=== PATIENT | male | born 1960 | race Caucasian/White ===

== ENCOUNTER 2016-10-31 19:26 | Emergency (ER) | payer MEDICARE ==
[2016-10-31 19:39] VITALS: BP 136/89
--- NOTE | 2016-10-31 22:58 | RAD ---
INDICATION: Right elbow pain possible bone spur. TECHNIQUE: 4 views of the right elbow were obtained. FINDINGS: The bones are in normal alignment. No joint effusion or fracture is seen. There is a small bony exostosis arising from the lateral epicondyle. There is mild osteoarthritic change. IMPRESSION: 1. SMALL BONY SPUR ARISING FROM THE LATERAL EPICONDYLE. 2. MILD OSTEOARTHRITIC CHANGE.
--- NOTE | 2016-10-31 23:56 | ED ---
Upper Extremity Pain - HPI Summary HPI Summary: 56 male presents with complaints of right elbow and forearm pain that began today 10/31/16. Patient states he noticed a skin rash and bump on his posterior right elbow in the shower yesterday 10/30/16. States the skin rash is white, non- itchy without drainage. Denies swelling, redness, recent injury or trauma, left arm pain and bruising. Patient has never had this pain before. Diffuse forearm pain that starts at elbow goes down to shoulder upon movement, especially when twisting forearm. Patient appears angry consistently asking who does the house keeping around here and also states that the nurse told him it was dry skin causing his pain and that it is ridiculous. Denies shoveling due to be a cardiac patient. States he took Ibuprofen just [employer] which did give him some relief however he does not like taking this medication it raises his blood pressure. Denies loss of ROM and numbness/tingling. Denies fever/chills. - History of Current Complaint Chief Complaint: EDExtremityUpper Stated Complaint: RIGHT ARM PAIN/LUMP Time Seen by Provider: 10/31/16 21:25 Hx Obtained From: Patient Onset/Duration: Started Days Ago Timing: Intermittent - with movement Severity Initially: Mild Severity Currently: Mild Pain Location: Elbow, Forearm Character: Aching Aggravating Factor(s): Movement Alleviating Factor(s): Rest, OTC Meds Associated Signs & Symptoms: Positive: Negative Related History: Dominant Hand Right - Allergies/Home Medications Allergies/Adverse Reactions: Allergies Allergy/AdvReac Type Severity Reaction Status Date / Time No Known Allergies Allergy Verified 04/06/15 18:41 PMH/Surg Hx/FS Hx/Imm Hx Endocrine/Hematology History: Reports: Hx Diabetes - ON MEDS Denies: Hx Anticoagulant Therapy, Hx Blood Disorders, Hx Blood Transfusions, Hx Bone Marrow Disease, Hx Systemic Lupus Erythematosus, Hx Sickle Cell Disease , Hx Thyroid Disease, Hx Anemia, Hx Unexplained Bleeding, Other Endocrine/ Hematological Disorders Cardiovascular History: Reports: Hx Angioplasty, Hx Auto Implanted Cardiovert Defib, Hx Coronary Artery Disease, Hx Hypercholesterolemia, Hx Hypertension, Hx Pacemaker/ICD Denies: Hx Aneurysm, Hx Angina, Hx Cardiac Arrest, Hx Cardiomegaly, Hx Congestive Heart Failure, Hx Embolism, Hx Hypotension, Hx Peripheral Vascular Disease, Hx Rheumatic Fever, Hx Syncope, Hx Valvular Heart Disease, Other Cardiovascular Problems/Disorders Respiratory History: Reports: Other Respiratory Problems/Disorders - HX PNEUMONA 10 YEARS AGO GI History: Reports: Hx Gastroesophageal Reflux Disease Denies: Other GI Disorders Sensory History: Reports: Hx Contacts or Glasses Opthamlomology History: Reports: Hx Contacts or Glasses Neurological History: Reports: Hx Nerve Disease - 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 GALLBLADDER, 2008, [facility]. CARDIAC STENTS, 2001, [facility] Hx Anesthesia Reactions: No Infectious Disease History: No Infectious Disease History: Denies: Hx Clostridium Difficile, Hx Hepatitis, Hx Human Immunodeficiency Virus (HIV), Hx of Known/Suspected MRSA, Hx Shingles, Hx Tuberculosis, Hx Known/ Suspected VRE, Hx Known/Suspected VRSA, History Other Infectious Disease, Traveled Outside the in Last 30 Days - Family History Known Family History: Positive: Cardiac Disease - Social History Alcohol Use: Rare Substance Use Type: Reports: None Smoking Status (MU): Never Smoked Tobacco Review of Systems Constitutional: Negative Eyes: Negative ENT: Negative Cardiovascular: Negative Respiratory: Negative Gastrointestinal: Negative Genitourinary: Negative Positive: Arthralgia, Myalgia Positive: Rash Neurological: Negative Psychological: Normal All Other Systems Reviewed And Are Negative: Yes Physical Exam Triage Information Reviewed: Yes Vital Signs On Initial Exam: Initial Vitals Temp Pulse Resp BP Pulse Ox 97.7 F 84 20 136/89 87 10/31/16 19:32 10/31/16 19:32 10/31/16 19:32 10/31/16 19:32 10/31/16 19:32 Vital Signs Reviewed: Yes Appearance: Positive: Well-Appearing, No Pain Distress, Well-Nourished Skin: Positive: Warm, Skin Color Reflects Adequate Perfusion - < 2 second cap refill, Dry, Other - white lichenified patches on bilateral posterior elbows, non pruritic no drainage. Negative: Weeping Skin/Lesions, Erythema @ Head/Face: Positive: Normal Head/Face Inspection Eyes: Positive: Normal ENT: Positive: Normal ENT inspection, Hearing grossly normal Neck: Positive: Supple, Nontender, No Lymphadenopathy Respiratory/Lung Sounds: Positive: Clear to Auscultation, Breath Sounds Present Cardiovascular: Positive: Normal, RRR, Pulses are Symmetrical in both Upper and Lower Extremities Abdomen Description: Positive: Nontender Bowel Sounds: Positive: Present Musculoskeletal: Positive: Normal, Strength/ROM Intact, Pain @ - right forearm with movement however does have Full ROM., Other - no signs of ecchymosis, erythema, edema, discharge or signs of infection or trauma. do feel a small bump on posterior right elbow around lateral epicondyle, that is more prominent when compared to left, appears to be a bone spur. confirmed by x-ray. Negative : Limited @, Interruption @, Edema Left, Edema Right Neurological: Positive: Normal, Sensory/Motor Intact, Alert, Oriented to Person Place, Time, CN Intact II-III, Reflexes Intact, NV Bundle Intact Distally, Normal Gait Psychiatric: Positive: Normal, Affect/Mood Appropriate Diagnostics - Vital Signs Vital Signs Temp Pulse Resp BP Pulse Ox 10/31/16 19:32 97.7 F 84 20 136/89 87 - Laboratory Lab Statement: Any lab studies that have been ordered have been reviewed, and results considered in the medical decision making process. - Radiology right elbow Xray Interpretation: Positive (See Comments) - 1. SMALL BONY SPUR ARISING FROM THE LATERAL EPICONDYLE. 2. MILD OSTEOARTHRITIC CHANGE. Radiology Interpretation Completed By: Radiologist Course/Dx - Course Course Of Treatment: x-ray obtained. denied pain medication at this time. while awaiting x-ray results went back to check on patient 2 times and he was no longer in the room. thought patient had left AMA. When I went back in the room to see another patient, patient was back. Patient was again very angry stating "I need to go get my brain checked, no wonder why people in the waiting room , this place is dirty, he'll never come back here again" mumbling under his breath that he would hurt.... also was mis understanding the statement of dry skin causing his pain when it was never said. I was apologetic. Patient also gave Dr Fox and nursing staff the same attitude. Patient was properly treated. Told to follow up with primary about bone spur and to try using eucerin on lichenification rash on elbows and a dermatology referral. rule out possible psoriasis. - Diagnoses Differential Diagnosis/HQI/PQRI: Positive: Arthritis, Bursitis, Contusion, Strain, Sprain, Other Provider Diagnoses: Bone spur, Lichenification - Physician Notifications Discussed Care Of Patient With: Dr Fox Discharge - Discharge Plan Condition: Guarded Disposition: HOME Referrals: Devin Pina DO [Primary Care Provider] - Brian Guzman MD [Medical Doctor] - Additional Instructions: Take OTC Tylenol to help with pain. Make an appointment with orthopedics or your primary care if this continues to bother you or worsen. Apply Eucerin to lichenified skin on both elbows.
--- NOTE | 2016-11-02 09:29 | ED ---
Dominguez Pierre Aidan, scribed for Conner Fox MD on 10/31/16 at 2208 . Progress - Progress Note Progress Note: Dr. Fox briefly evaluated the patient: he is complaining of right forearm pain. He is right-hand dominant. Pt presents with a bony prominence. Just distal to elbow, he is not tender to palpation (where he says he has pain). He should follow up with his PCP in 2-3 days. Suspected bone spurring. Course/Dx - Diagnoses Provider Diagnoses: Bone spur, Lichenification The documentation as recorded by the Dominguez knowles Aidan accurately reflects the service I personally performed and the decisions made by Dominique hutchison Jerry, MD.
== END 2016-10-31 23:33 | disposition home or self-care (01) ==
LOC: ED 19:26
DX: M77.9 Enthesopathy, unspecified (principal); L28.0 Lichen simplex chronicus; E11.9 Type 2 diabetes mellitus without complications; I25.10 Atherosclerotic heart disease of native coronary artery without angina pectoris; E78.00 Pure hypercholesterolemia, unspecified; I10 Essential (primary) hypertension; K21.9 Gastro-esophageal reflux disease without esophagitis; F41.9 Anxiety disorder, unspecified
CPT/HCPCS: 99282

== ENCOUNTER 2017-03-24 14:10 | Inpatient (IN) | payer MEDICARE ==
[2017-03-24] MEDS ORDERED: Furosemide IV* 10 MG/ML VIAL (40 MG) IV ONE ×2 (14:17→17:46)
--- NOTE | 2017-03-24 14:53 | RAD ---
Indication: Shortness of breath and 60 pound weight gain. Cardiac disease. Comparison: April 06, 2015 CT Technique: Upright AP 1423 hours Report: Cardiomegaly. Mild prominence of the interstitial markings. Normal variant accessory azygos fissure in the RIGHT upper lung zone. Negative for pleural effusion or pneumothorax. 2 RIGHT ventricular level pacemaker leads. LEFT chest wall pacemaker control device. IMPRESSION: Cardiomegaly with probable mild interstitial edema.
[2017-03-24 15:00] LABS: Hematocrit 47 % (42-52); Hemoglobin 14.9 g/dl (14.0-18.0); Mean Corpuscular HGB Conc 32 g/dl (31-36); Mean Corpuscular Hemoglobin 30 pg (27-31); Mean Corpuscular Volume 95 fL (80-94); Mean Platelet Volume 9 um3 (7.4-10.4); Red Blood Count 4.96 10^6/ul (4.0-5.4); Red Cell Distribution Width 18 % (10.5-15); White Blood Count 7.6 10^3/ul (3.5-10.8)
[2017-03-24 15:07] LABS: Albumin 3.6 g/dL (3.2-5.2); BUN/Creatinine Ratio 32.2 (8-20); C Reactive Protein 28.37 mg/L (< 5.00); Calcium 9.3 mg/dL (8.6-10.3); EGFR African American 53.3 (>60); EGFR Non-African American 41.5 (>60); Globulin 3.8 g/dL (2-4); Potassium 4.2 mmol/L (3.5-5.0); Total Bilirubin 0.7 mg/dL (0.2-1.0); Total Protein 7.4 g/dL (6.4-8.9)
[2017-03-24 15:13] LABS: Troponin I 0.04 ng/mL (<0.04)
[2017-03-24 15:43] LABS: TSH (Thyroid Stimulating Horm) 2.93 mcIU/mL (0.34-5.60)
[2017-03-24 17:31] LABS: Urine Bacteria Absent (Absent); Urine Bilirubin Negative (Negative); Urine Glucose 1+(50 mg/dL) (Negative); Urine Nitrite Negative (Negative)
--- NOTE | 2017-03-24 17:34 | ED ---
Yony Pierre Benjamin, scribed for Samuel Mathew MD on 03/24/17 at 1436 . Shortness of Breath - HPI Summary HPI Summary: 56yo male BIBA c/o SOB and weight gain of 60lb in the last 2 months. Pt saw his PCP today who referred him to the ED. Pt denies fever, chills or any CP. Hx of Mix3, cardiac stentx3, pace maker, IDDM, and JVD. - History of Current Complaint Chief Complaint: EDShortnessOfBreath Time Seen by Provider: 03/24/17 14:16 Hx Obtained From: Patient Onset/Duration: Sudden Onset, Lasting Hours, Still Present Current Severity: Moderate Dyspnea At: Rest Aggrevating Factors: Nothing Associated Signs & Symptoms: Negative - Allergy/Home Medications Allergies/Adverse Reactions: Allergies Allergy/AdvReac Type Severity Reaction Status Date / Time No Known Allergies Allergy Verified 04/06/15 18:41 Home Medications: Home Medications Atorvastatin* [Lipitor*] 80 mg PO DAILY 03/24/17 [History Confirmed 03/24/17] Furosemide TAB* [Lasix TAB*] 40 mg PO EVERY OTHER DAY 03/24/17 [History Confirmed 03/24/17] Furosemide TAB* [Lasix TAB*] 80 mg PO EVERY OTHER DAY 03/24/17 [History Confirmed 03/24/17] Ibuprofen [Ibuprofen 200 MG] 200 mg PO Q6HR PRN 03/24/17 [History Confirmed 04/02] Liraglutide (NF) [Victoza (NF)] 1.8 mg SUBCUT DAILY 03/24/17 [History Confirmed 03/24/17] Nitroglycerin TAB 0.4 MG* 0.4 mg SL Q5M PRN 03/24/17 [History Confirmed 03/24/17 ] diPHENhydraMINE PO* [Benadryl PO 25 MG TAB*] 25 mg PO Q6H PRN 03/24/17 [History Confirmed 03/24/17] metFORMIN* [Glucophage 1000 MG TAB *] 1,000 mg PO BID WITH MEALS 03/24/17 [ History Confirmed 03/24/17] PMH/Surg Hx/FS Hx/Imm Hx Endocrine/Hematology History: Reports: Hx Diabetes - ON MEDS Denies: Hx Anticoagulant Therapy, Hx Blood Disorders, Hx Blood Transfusions, Hx Bone Marrow Disease, Hx Systemic Lupus Erythematosus, Hx Sickle Cell Disease , Hx Thyroid Disease, Hx Anemia, Hx Unexplained Bleeding, Other Endocrine/ Hematological Disorders Cardiovascular History: Reports: Hx Angioplasty, Hx Auto Implanted Cardiovert Defib, Hx Coronary Artery Disease, Hx Hypercholesterolemia, Hx Hypertension, Hx Pacemaker/ICD Denies: Hx Aneurysm, Hx Angina, Hx Cardiac Arrest, Hx Cardiomegaly, Hx Congestive Heart Failure, Hx Embolism, Hx Hypotension, Hx Peripheral Vascular Disease, Hx Rheumatic Fever, Hx Syncope, Hx Valvular Heart Disease, Other Cardiovascular Problems/Disorders Respiratory History: Reports: Other Respiratory Problems/Disorders - HX PNEUMONA 10 YEARS AGO GI History: Reports: Hx Gastroesophageal Reflux Disease Denies: Other GI Disorders Sensory History: Reports: Hx Contacts or Glasses Opthamlomology History: Reports: Hx Contacts or Glasses Neurological History: Reports: Hx Nerve Disease - 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 GALLBLADDER, 2008, [facility]. CARDIAC STENTS, 2001, [facility] Hx Anesthesia Reactions: No Infectious Disease History: No Infectious Disease History: Denies: Hx Clostridium Difficile, Hx Hepatitis, Hx Human Immunodeficiency Virus (HIV), Hx of Known/Suspected MRSA, Hx Shingles, Hx Tuberculosis, Hx Known/ Suspected VRE, Hx Known/Suspected VRSA, History Other Infectious Disease, Traveled Outside the in Last 30 Days - Family History Known Family History: Positive: Cardiac Disease - Social History Alcohol Use: Rare Substance Use Type: Reports: None Smoking Status (MU): Never Smoked Tobacco Review of Systems Positive: Other - significant recent weight gain Eyes: Negative ENT: Negative Cardiovascular: Negative Positive: Shortness Of Breath Gastrointestinal: Negative Genitourinary: Negative Musculoskeletal: Negative Skin: Negative Neurological: Negative Psychological: Normal All Other Systems Reviewed And Are Negative: Yes Physical Exam Triage Information Reviewed: Yes Vital Signs On Initial Exam: Initial Vitals Temp Pulse Resp BP Pulse Ox 97.4 F 77 21 127/68 91 03/24/17 14:18 03/24/17 14:18 03/24/17 14:18 03/24/17 14:18 03/24/17 14:18 Vital Signs Reviewed: Yes Appearance: Positive: Well-Appearing, No Pain Distress, Well-Nourished Skin: Positive: Warm, Skin Color Reflects Adequate Perfusion, Dry Head/Face: Positive: Normal Head/Face Inspection Eyes: Positive: Normal ENT: Positive: Normal ENT inspection Neck: Positive: Supple, Nontender Respiratory/Lung Sounds: Positive: Breath Sounds Present, Rales, Other - moderate dyspnea Cardiovascular: Positive: RRR Abdomen Description: Positive: Nontender, Distended Bowel Sounds: Positive: Present Musculoskeletal: Positive: Strength/ROM Intact, Edema Left - extensive bilateral pedal edema, Edema Right - extensive bilateral pedal edema Neurological: Positive: Sensory/Motor Intact, Alert, Oriented to Person Place, Time, CN Intact II-III. Negative: Focal Deficit @ - no neurological deficits Psychiatric: Positive: Affect/Mood Appropriate Diagnostics - Vital Signs Vital Signs Temp Pulse Resp BP Pulse Ox 03/24/17 14:18 97.4 F 77 21 127/68 91 - Laboratory Lab Results: Lab Results 03/24/17 03/24/17 03/24/17 Range/Units 14:44 14:44 14:44 WBC 7.6 (3.5-10.8) 10^3/ul RBC 4.96 (4.0-5.4) 10^6/ul Hgb 14.9 (14.0-18.0) g/dl Hct 47 (42-52) % MCV 95 H (80-94) fL MCH 30 (27-31) pg MCHC 32 (31-36) g/dl RDW 18 H (10.5-15) % Plt Count 306 (150-450) 10^3/ul MPV 9 (7.4-10.4) um3 Neut % (Auto) 73.8 (38-83) % Lymph % (Auto) 13.1 L (25-47) % Weber % (Auto) 11.3 H (1-9) % Eos % (Auto) 0.5 (0-6) % Baso % (Auto) 1.3 (0-2) % Absolute Neuts (auto) 5.6 (1.5-7.7) 10^3/ul Absolute Lymphs (auto) 1.0 (1.0-4.8) 10^3/ul Absolute Monos (auto) 0.9 H (0-0.8) 10^3/ul Absolute Eos (auto) 0 (0-0.6) 10^3/ul Absolute Basos (auto) 0.1 (0-0.2) 10^3/ul Absolute Nucleated RBC 0 10^3/ul Nucleated RBC % 0.1 INR (Anticoag Therapy) 1.07 (0.89-1.11) APTT 31.9 (26.0-36.3) seconds Sodium 141 (133-145) mmol/L Potassium 4.2 (3.5-5.0) mmol/L Chloride 105 (101-111) mmol/L Carbon Dioxide 29 (22-32) mmol/L Anion Gap 7 (2-11) mmol/L BUN 55 H (6-24) mg/dL Creatinine 1.71 H (0.67-1.17) mg/dL Est GFR ( Amer) 53.3 (>60) Est GFR (Non-Af Amer) 41.5 (>60) BUN/Creatinine Ratio 32.2 H (8-20) Glucose 159 H (70-100) mg/dL Lactic Acid (0.5-2.0) mmol/L Calcium 9.3 (8.6-10.3) mg/dL Magnesium 2.0 (1.9-2.7) mg/dL Total Bilirubin 0.70 (0.2-1.0) mg/dL AST 12 L (13-39) U/L ALT 9 (7-52) U/L Alkaline Phosphatase 144 H (34-104) U/L Total Creatine Kinase 36 (10-223) U/L CK-MB (CK-2) 2.3 (0.6-6.3) ng/mL Troponin I 0.04 H* (<0.04) ng/mL C-Reactive Protein 28.37 H (< 5.00) mg/L B-Natriuretic Peptide ( - 100) pg/mL Total Protein 7.4 (6.4-8.9) g/dL Albumin 3.6 (3.2-5.2) g/dL Globulin 3.8 (2-4) g/dL Albumin/Globulin Ratio 0.9 L (1-3) Lipase 24 (11.0-82.0) U/L TSH 2.93 (0.34-5.60) mcIU/mL Urine Color Urine Appearance Urine pH (5-9) Ur Specific [place] (1.010-1.030) Urine Protein (Negative) Urine Ketones (Negative) Urine Blood (Negative) Urine Nitrate (Negative) Urine Bilirubin (Negative) Urine Urobilinogen (Negative) Ur Leukocyte Esterase (Negative) Urine WBC (Auto) (Absent) Urine RBC (Auto) (Absent) Ur Squamous Epith Cells (Absent) Urine Bacteria (Absent) Hyaline Casts (Absent) WBC Casts (Absent) Urine Glucose (Negative) 03/24/17 03/24/17 03/24/17 Range/Units 14:44 14:44 17:12 WBC (3.5-10.8) 10^3/ul RBC (4.0-5.4) 10^6/ul Hgb (14.0-18.0) g/dl Hct (42-52) % MCV (80-94) fL MCH (27-31) pg MCHC (31-36) g/dl RDW (10.5-15) % Plt Count (150-450) 10^3/ul MPV (7.4-10.4) um3 Neut % (Auto) (38-83) % Lymph % (Auto) (25-47) % Weber % (Auto) (1-9) % Eos % (Auto) (0-6) % Baso % (Auto) (0-2) % Absolute Neuts (auto) (1.5-7.7) 10^3/ul Absolute Lymphs (auto) (1.0-4.8) 10^3/ul Absolute Monos (auto) (0-0.8) 10^3/ul Absolute Eos (auto) (0-0.6) 10^3/ul Absolute Basos (auto) (0-0.2) 10^3/ul Absolute Nucleated RBC 10^3/ul Nucleated RBC % INR (Anticoag Therapy) (0.89-1.11) APTT (26.0-36.3) seconds Sodium (133-145) mmol/L Potassium (3.5-5.0) mmol/L Chloride (101-111) mmol/L Carbon Dioxide (22-32) mmol/L Anion Gap (2-11) mmol/L BUN (6-24) mg/dL Creatinine (0.67-1.17) mg/dL Est GFR ( Amer) (>60) Est GFR (Non-Af Amer) (>60) BUN/Creatinine Ratio (8-20) Glucose (70-100) mg/dL Lactic Acid 1.2 (0.5-2.0) mmol/L Calcium (8.6-10.3) mg/dL Magnesium (1.9-2.7) mg/dL Total Bilirubin (0.2-1.0) mg/dL AST (13-39) U/L ALT (7-52) U/L Alkaline Phosphatase (34-104) U/L Total Creatine Kinase (10-223) U/L CK-MB (CK-2) (0.6-6.3) ng/mL Troponin I (<0.04) ng/mL C-Reactive Protein (< 5.00) mg/L B-Natriuretic Peptide 2353 H ( - 100) pg/mL Total Protein (6.4-8.9) g/dL Albumin (3.2-5.2) g/dL Globulin (2-4) g/dL Albumin/Globulin Ratio (1-3) Lipase (11.0-82.0) U/L TSH (0.34-5.60) mcIU/mL Urine Color Yellow Urine Appearance Clear Urine pH 5.0 (5-9) Ur Specific [place] 1.016 (1.010-1.030) Urine Protein 2+(100 mg/dl) H (Negative) Urine Ketones Negative (Negative) Urine Blood Negative (Negative) Urine Nitrate Negative (Negative) Urine Bilirubin Negative (Negative) Urine Urobilinogen Negative (Negative) Ur Leukocyte Esterase Negative (Negative) Urine WBC (Auto) Trace(0-5/hpf) (Absent) Urine RBC (Auto) Absent (Absent) Ur Squamous Epith Cells Present H (Absent) Urine Bacteria Absent (Absent) Hyaline Casts Present H (Absent) WBC Casts Present H (Absent) Urine Glucose 1+(50 mg/dl) H (Negative) Result Diagrams: 03/24/17 14:44 03/24/17 14:44 Lab Statement: Any lab studies that have been ordered have been reviewed, and results considered in the medical decision making process. - Radiology CXR Xray Interpretation: Positive (See Comments) - IMPRESSION: Cardiomegaly with probable mild interstitial edema. Radiology Interpretation Completed By: Radiologist - EKG 5820. Cardiac Rate: NL - 72bpm EKG Rhythm: Sinus Rhythm Ectopy: None EKG Interpretation: borderline T abnormalities in inferior and lateral leads. Course/Dx - Course Course Of Treatment: STABLE IN ED. ADMIT HOSPITALIST STABLE. - Diagnoses Provider Diagnoses: CHF (congestive heart failure), Hypoxia, Renal insufficiency Discharge - Discharge Plan Condition: Stable Disposition: ADMITTED TO [facility] Referrals: Devin Pina DO [Primary Care Provider] - The documentation as recorded by the Yony knowles Benjamin accurately reflects the service I personally performed and the decisions made by me, Samuel Mathew MD.
[2017-03-24] MEDS ORDERED: Dextrose 50% Syringe 50 ML* 25 GM/50 ML SYRINGE IV PUSH PRN (17:51)
[2017-03-24] MEDS ORDERED: Acetaminophen TAB* 325 MG PO PRN (17:52)
[2017-03-24] MEDS ORDERED: Ondansetron INJ* 2 MG/ML VIAL IV PRN (17:53)
[2017-03-24] MEDS ORDERED: Metolazone TAB* 5 MG PO ONE (18:08)
[2017-03-24] MEDS ORDERED: Furosemide IV* 10 MG/ML 10 ML VIAL (100 MG) IV ONE (18:38)
--- NOTE | 2017-03-24 22:34 | HP ---
CC: Dr. Devin Pina [facility] MEDICINE HISTORY AND PHYSICAL: DATE OF ADMISSION: 03/24/17 PRIMARY CARE PHYSICIAN: Dr. Devin Pina. ATTENDING PHYSICIAN: Dr. Diane Danielle * (dictation provided by Katarina Velásquez NP ). CHIEF COMPLAINT: Shortness of breath. HISTORY OF PRESENT ILLNESS: Mr. Freire is a 56-year-old male with past medical history of CHF with last known ejection fraction of 30% to 35% with 3 MIs, CABG and 2 stents as well as obstructive sleep apnea; ICD placement; type 2 diabetes, non-insulin dependent and morbid obesity, who presents to the hospital today with complaints of shortness of breath. He last saw his primary care physician 6 months ago. He went to follow up with Dr. Pina today for a routine visit and he was noted to have had gained 60 pounds in the past 6 months. He was also extraordinarily short of breath and was pale and dusky. The patient states that he has known that his health was deteriorating for few months. 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 He now uses a motorized wheelchair when he goes to the grocery store or shopping. He reports significant edema in his legs and his arms. He states his abdomen is swollen. He wears 2 to 3 L nasal cannula at home at all times. He also has obstructive sleep apnea and wears CPAP. He denies any chest pain. He has had no cough. He has had no nausea, vomiting, or abdominal pain. He has had no diarrhea. He has been tolerating oral intake well. In the emergency room, Mr. Freire was requiring 10 L of oxygen to maintain sat greater than 90%. His BUN and creatinine are elevated with evidence of an acute kidney injury at 55 and 1.71 respectively. His troponin is mildly elevated at 0.04. His BNP is quite high at 2353. His chest x-ray is read as mild pulmonary interstitial edema only, but is a very poor study. His EKG shows sinus rhythm with the heart rate in the 70s with no evidence of ischemia. PAST MEDICAL HISTORY: 1. Coronary artery disease with first NH at 31 with 2 subsequent MIs requiring CABG and stent placement. 2. Chronic systolic heart failure with ejection fraction 30% to 35%. 3. ICD placed, 2004. 4. Mitral regurgitation. 5. Myhrbkqw-ej-yqdyhy pulmonary hypertension. 6. Morbid obesity. 7. Hypertension. 8. Type 2 diabetes, non-insulin dependent. MEDICATIONS: 1. Furosemide 40 mg alternating with 80 mg every other day. 2. Ibuprofen 200 mg p.o. q.6 hours p.r.n. 3. Victoza 1.8 mg subcutaneously daily. 4. Lisinopril 20 mg p.o. daily. 5. Nitroglycerin tab 0.4 mg q.5 minutes p.r.n. 6. Diphenhydramine 25 mg p.o. q.6 hours p.r.n. 7. Metformin 1000 mg p.o. b.i.d. 8. Aspirin 81 mg p.o. daily. 9. Atenolol 50 mg p.o. daily. 10. Atorvastatin 80 mg p.o. daily. ALLERGIES: No known drug allergies. FAMILY HISTORY: The patient reports his father had CHF and in his 70s. His mother related to brain aneurysm and also had hypertension. SOCIAL HISTORY: The patient quit smoking cigarettes 8 years ago. He only drinks alcohol very occasionally. There is no report of drug use. He reports that his daughter, Herminia Freire, would be his healthcare proxy. REVIEW OF SYSTEMS: A 14-point review of systems was completed with Mr. Freire and all those not mentioned above were negative. PHYSICAL EXAMINATION GENERAL: Mr. Freire is sitting in the bed. He is in no acute distress and appears comfortable at rest. He is able to speak in complete sentences. VITAL SIGNS: Temperature 97.4, heart rate 70, respiratory rate 22, O2 saturation 93% on 10 L facemask, blood pressure 143/83. LUNGS: Sound very diminished bilaterally and auscultation is less than optimal due to his body habitus. HEART: S1, S2. No murmur, rub, or gallop is appreciated. ABDOMEN: Soft. It is distended. It is nontender. Bowel sounds are positive. EXTREMITIES: No cyanosis. Positive for 3+ pitting edema up to his thighs. He also has edema in his arms, most notably in his left arm. NEURO: He is alert, he is oriented x3. He moves all extremities equally. There is no facial asymmetry or focal weakness. Extraocular movements are intact. SKIN: Intact. His ears are dusky as well as his lips dusky and purple. DIAGNOSTIC STUDIES/LAB DATA: WBC 7.6, hemoglobin 14.9, hematocrit 47, platelet count 306. INR 1.07. Sodium 141, potassium 4.2, chloride 105, serum bicarbonate 29, BUN 55, creatinine 1.71, glucose 159, lactic acid 1.2. Troponin 0.04. CRP 28.37. BNP 2353. Urine shows no evidence of infection. Chest x-ray shows mild interstitial edema per the read from Dr. Sawyer. EKG shows sinus rhythm with heart rate in the 70s. ASSESSMENT AND PLAN: Mr. Freire is a 56-year-old male with past medical history of coronary artery disease with myocardial infarction x3 and coronary artery bypass graft as well as ejection fraction 30% to 35% with implantable cardioverter- defibrillator, who presents today to the hospital with shortness of breath and a 60- pound weight gain with significant peripheral edema. Our plans are for inpatient admission as expected length of stay would be greater than 2 days for the followin. Shortness of breath: Given the patient's history of congestive heart failure, his shortness of breath, and his significant peripheral edema, and weight gain, I suspect that his symptoms are all related to acute on chronic congestive heart failure exacerbation. Our plans will be to augment his diuresis with metolazone and an additional 80 mg of Lasix tonight. I have discussed the case with Dr. Alex and someone from Cardiology will be seeing the patient tomorrow. He is currently on 10 L of oxygen, but he is maintaining well at rest. Plan to admit to the intensive care unit in the event that additional oxygen supplementation is needed. The patient denies any dietary indiscretions and his daughter is at the bedside who helps with his care confirms that he has been making great efforts to follow a low- salt diet. Despite this, he continues to gain weight and be short of breath. I have ordered a transthoracic echo as I am concerned that his EF has worsened. 2. Hypertension: Plan to continue atenolol but hold his lisinopril with need for diuresis and his acute kidney injury. 3. Type 2 diabetes: Plan to hold Victoza and provide lispro sliding scale insulin with meals. He can also have Lantus as needed, but at this point, his glucose this afternoon is reasonably well controlled at 159. 4. DVT prophylaxis: With heparin subcu. 5. Code status: Full code. The patient would accept intubation if necessary. TIME SPENT: Approximately 60 minutes was spent on the admission of this patient , more than half time was spent with the patient at the bedside reviewing the events leading up to this hospitalization, performing the physical examination, and reviewing the plan of care. KATARINA VELÁSQUEZ NP [id number]/CPS #: [id number] BRIAN
[2017-03-24] MEDS: Heparin VIAL(*) 5000 UNITS/ML VIAL (FIVE THOUSAND) SUBCUT SCH (23:25)
[2017-03-24] MEDS: Morphine INJ* 4 MG/ML 1 ML SYRINGE IV PRN (23:34)
[2017-03-25] MEDS: Morphine INJ* 4 MG/ML 1 ML SYRINGE IV PRN ×2 (04:01→16:51)
[2017-03-25] MEDS: Heparin VIAL(*) 5000 UNITS/ML VIAL (FIVE THOUSAND) SUBCUT SCH (05:49)
[2017-03-25 05:59] LABS: Hematocrit 44 % (42-52); Hemoglobin 13.6 g/dl (14.0-18.0); Mean Corpuscular HGB Conc 31 g/dl (31-36); Mean Corpuscular Hemoglobin 30 pg (27-31); Mean Corpuscular Volume 96 fL (80-94); Mean Platelet Volume 9 um3 (7.4-10.4); Red Blood Count 4.59 10^6/ul (4.0-5.4); Red Cell Distribution Width 18 % (10.5-15)
[2017-03-25 06:01] LABS: Calcium 9.4 mg/dL (8.6-10.3); EGFR African American 50.6 (>60); EGFR Non-African American 39.3 (>60); Potassium 4.5 mmol/L (3.5-5.0)
[2017-03-25 06:02] LABS: Comments Flag Yes
[2017-03-25] MEDS ORDERED: Metolazone TAB* 5 MG PO ONE (08:25)
[2017-03-25] MEDS ORDERED: Furosemide IV* 10 MG/ML VIAL (40 MG) IV ONE (09:00)
[2017-03-25] MEDS ORDERED: Atorvastatin* 80 MG TAB PO SCH (09:00)
[2017-03-25] MEDS ORDERED: Aspirin Low Dose CHEW TAB* 81 MG PO SCH (09:00)
[2017-03-25] MEDS ORDERED: Atenolol TAB* 50 MG PO SCH (09:00)
[2017-03-25] MEDS: Insulin LISPRO* 1 UNITS UNIT SUBCUT SCH ×2 (09:24→13:17)
[2017-03-25] MEDS ORDERED: Heparin DRIP 25,000 UNITS(*) 25,000 UNITS/500 ML BAG IVPB SCH (10:00)
[2017-03-25] MEDS ORDERED: Heparin VIAL(*) 5000 UNITS/ML VIAL (FIVE THOUSAND) IV SCH (10:00)
--- NOTE | 2017-03-25 10:00 | ECHO ---
Patient: JUANITO TAYLOR [facility] Rec#: [id number] : 1960 Date: 03/25/2017 Age: 56y Height: 167.6 cm / 66.0 in Weight: 122.5 kg / 270.0 lbs Sex: M BSA: 2.27 Room#: ICU 3 Admit Date#: 03/24/2017 Type: Inpatient Referring: Katarina Velásquez NP Reading: Lindsey Krause MD Vessel Traffic Officer: Avelina Paulino RN RDCS CC: Devin Pina DO CC: Blane High MD Transthoracic Echocardiogram Indication: CHF BP: 106/59 HR: 63 Rhythm: NSR with PVCs Findings History: GA, PCI x 3, pacemaker, DM, obesity Technical Comments: The study quality is fair. The study is technically limited due to poor apical windows. The study is technically limited due to patient body habitus. The study is technically limited due to patient being on BIPAP during study. Completed 914. Left Ventricle: The left ventricular chamber size is moderately dilated. Septal wall hypertrophy is observed. There are multiple regional wall motion abnormalities. Posterior wall calcified and akinetic. Anterior and lateral nails move well. There is moderate to severely decreased left ventricular systolic function. The estimated ejection fraction is 30-35%. There is septal flattening of the interventricular septum consistent with right ventricular volume or pressure overload. Septum bowing into LV, LV "guajardo shapped" instead of "D shaped" Abnormal left ventricular diastolic filling is observed, consistent with impaired relaxation. Left Atrium: The left atrium is mildly dilated. Right Ventricle: The right ventricle is moderate to severely dilated. The right ventricular global systolic function is severely reduced. A pacemaker wire is visualized in the right ventricle. Right Atrium: The right atrium is moderate to severely dilated. A pacemaker wire is visualized in the right atrium. Aortic Valve: The aortic valve is trileaflet. The aortic valve leaflets are mildly thickened. There is no evidence of aortic regurgitation. There is no evidence of aortic stenosis. Mitral Valve: There is posterior mitral annular calcification. The mitral valve leaflets are mildly thickened. There is mild to moderate mitral regurgitation. There is no evidence of mitral stenosis. Tricuspid Valve: The tricuspid valve leaflets are normal. There is moderate to severe tricuspid regurgitation.medially directed jet. There is evidence of severe pulmonary hypertension. There is no tricuspid stenosis. Pulmonic Valve: The pulmonic valve appears normal. There is mild pulmonic regurgitation. There is no pulmonic stenosis. Pericardium: There is no significant pericardial effusion. A pericardial fat pad is visualized. A left pleural effusion is present. Aorta: There is no dilatation of the ascending aorta. The aortic arch is not well visualized. There is no dilation of the aortic root. Pulmonary Artery: The main pulmonary artery appears normal. Venous: The inferior vena cava is dilated. There is no change in the dimension of the inferior vena cava with respiration consistent with markedly increased right atrial pressure. Conclusions The study is technically limited due to patient being on BIPAP during study. Completed 914. The left ventricular chamber size is moderately dilated. Septal wall hypertrophy is observed. There are multiple regional wall motion abnormalities. Posterior wall calcified and akinetic. Anterior and lateral nails move well. There is septal flattening of the interventricular septum consistent with right ventricular volume or pressure overload. Septum bowing into LV, LV "guajardo shapped" instead of "D shaped" The estimated ejection fraction is 30-35%. Abnormal left ventricular diastolic filling is observed, consistent with impaired relaxation. The right ventricle is moderate to severely dilated. The right ventricular global systolic function is severely reduced. The right atrium is moderate to severely dilated. There is mild to moderate mitral regurgitation. There is moderate to severe tricuspid regurgitation.medially directed jet. There is evidence of severe pulmonary hypertension: 100 mmHg. Compared with prior echo report of 09/24/16, LV function is not significantly changed, RV function has worsened, previously moderate now virtually akinetic, pulmonary hypertension newly appreciated, previously estimated at 32 mHg. Measurements Name Value Normal Range RVIDd (AP) 2D 5.2 cm (0.9 - 2.6) RVDdMajor (2D) 5.4 cm (2.2 - 4.4) RAd ISD 4CH 6.4 cm (3.4 - 4.9) RA (A4C)W 4.5 cm (2.9 - 4.6) IVSd (2D) 1.7 cm (0.6 - 1) LVPWd (2D) 1 cm (0.6 - 1) LVIDd (2D) 6.6 cm (3.6 - 5.4) LVIDs (2D) 6.1 cm - LV FS (2D) 8 % (25 - 45) Aortic Annulus 2.7 cm (1.4 - 2.6) Ao root diameter (2D) 3.4 cm (2.1 - 3.5) Ascending Ao 3.1 cm (2.1 - 3.4) LA dimension (AP) 2D 5 cm (2.3 - 3.8) LAd ISD 4CH 5.4 cm (2.9 - 5.3) LA ISD 4CH W 4.4 cm (2.5 - 4.5) Name Value Normal Range LA ESV SP 4CH (A/L) 61 ml - LA ESV SP 2CH (A/L) 38 ml - LA ESV BP (A/L) 52 ml - LA ESV BP (A/L) index 23 ml/m2 - LA ESV SP 4CH (MOD) 56 ml - LA ESV SP 2CH (MOD) 38 ml - Name Value Normal Range MV E-wave Vmax 0.6 m/sec - MV deceleration time 216 msec - MV A-wave Vmax 0.79 m/sec - MV E:A ratio 0.77 ratio - LV septal e' Vmax 0.04 m/sec - LV E:e' septal ratio 15 ratio - Name Value Normal Range AV Vmax 0.96 m/sec - AV VTI 18.7 cm - AV peak gradient 3.7 mmHg - AV mean gradient 2.6 mmHg - LVOT Vmax 0.86 m/sec - LVOT VTI 17.2 cm - LVOT peak gradient 3 mmHg - LVOT mean gradient 1.7 mmHg - Name Value Normal Range TR Vmax 4.6 m/sec - TR peak gradient 85 mmHg - RAP 15 mmHg - RVSP 100 mmHg - Name Value Normal Range PV Vmax 0.59 m/sec -
--- NOTE | 2017-03-25 10:39 | RAD ---
HISTORY: Lower extremity edema COMPARISONS: None relevant TECHNIQUE: Multiple transverse and longitudinal ultrasound images were obtained of the bilateral lower extremities from the level of the common femoral vein inferiorly through to the infrapopliteal veins using grayscale, color Doppler, and spectral Doppler imaging with and without compression and with augmentation. FINDINGS: The study is limited by patient body habitus and soft tissue edema. VEINS: The venous system of the bilateral lower extremities is compressible throughout its course, with normal flow on color Doppler imaging and normal response to augmentation on spectral Doppler imaging. SOFT TISSUES: There is diffuse edema of the subcutaneous soft tissue OTHER FINDINGS: None. IMPRESSION: NO RIGHT LOWER EXTREMITY DEEP VEIN THROMBOSIS. NO LEFT LOWER EXTREMITY DEEP VEIN THROMBOSIS
--- NOTE | 2017-03-25 11:14 | RAD ---
Indication: Severe pulmonary hypertension. Assess for pulmonary embolism. Comparison: March 24, 2017 chest radiograph and April 06, 2015 CT pulmonary angiogram. Technique: Following administration of 8.650 mCi xenon-133 by inhalation anterior and posterior ventilation images were obtained. Following the administration of 6.450 mCi of Tc-99m macroaggregated albumin, perfusion images were obtained in multiple projections. Report: The ventilation pattern is uniform with no evidence of air trapping. Negative for segmental or subsegmental perfusion defects. IMPRESSION: Normal examination without evidence for pulmonary embolism.
[2017-03-25 12:06] LABS: Comments Flag Yes; Hematocrit 46 % (42-52); Mean Corpuscular HGB Conc 31 g/dl (31-36); Mean Corpuscular Hemoglobin 29 pg (27-31); Mean Corpuscular Volume 95 fL (80-94); Mean Platelet Volume 9 um3 (7.4-10.4); Red Blood Count 4.78 10^6/ul (4.0-5.4); Red Cell Distribution Width 18 % (10.5-15); White Blood Count 10.7 10^3/ul (3.5-10.8)
--- NOTE | 2017-03-25 15:56 | CONS ---
CC: Dr. Devin Pina; Hospitalist Service; [facility]. CARDIOLOGY CONSULTATION: DATE OF CONSULT: 03/25/17 REASON FOR CONSULTATION: Fluid overload. CHIEF COMPLAINT: The patient's chief complaint is shortness of breath and fluid retention. HISTORY OF PRESENT ILLNESS: Mr. Freire is a 56-year-old gentleman followed by my partner, Dr. Blane High, for coronary artery disease with a distant inferior wall myocardial infarction and ICD placement. The patient additionally has diabetes, obesity, and severe obstructive sleep apnea. The patient was examined in the presence of his daughter and both provided history. The patient states that about 3 months ago, he started to have pain in the shoulders and arms, that was severe. For this, he started taking ibuprofen regularly. In this 3-month period he had progressive weight gain despite taking his diuretics regularly. He denies any chest pain, pressure or heaviness other than the shoulder and arm pain, but he has had progressive exertional dyspnea, progressive exercise intolerance and his hands were so painful, he said he could not even turn his steering wheel. He had to have his daughter assist in places. He did not seek medical care prior to this admission. He went for a regular appointment to his primary care physician who sent him to the hospital. PAST MEDICAL HISTORY: The patient has a past medical history of: 1. Coronary artery disease (inferior wall myocardial infarction in 1997 with stenting to a dominant circ), ICD implantation. 2. Ischemic left ventricular cardiomyopathy. 3. RV hypokinesis. 4. Type 2 diabetes. 5. Severe sleep apnea. 6. Obesity. 7. Anxiety. PAST SURGICAL HISTORY: Includes: 1. Tonsillectomy. 2. Adenoidectomy. 3. Cholecystectomy. 4. Hernia repair. 5. ICD implantation. CURRENT INPATIENT MEDICATIONS: Includes: 1. Tylenol p.r.n. 2. Aspirin 81 mg a day. 3. Atenolol 50 mg a day. 4. Lipitor 80 mg a day. 5. Heparin drip. 6. Humalog, Lispro insulin. 7. Morphine p.r.n. 8. Zofran p.r.n. 9. He received a total of 200 mg of Lasix IV and metolazone 10 mg orally since admission as p.r.n. ALLERGIES: No known drug allergies. FAMILY HISTORY: Significant for his father due to coronary artery disease , his mother had a history of a brain aneurysm. He has 9 siblings with cardiac , diabetes, and hypertension. SOCIAL HISTORY: The patient has been working as a custodian blood bank. Smoked in the past. Rare alcohol. No history of recreational drug use. REVIEW OF SYSTEMS: Significant for progressive weight gain 60 pounds over 3 months, pain in the shoulders and arms and extending to the hands bilaterally for which he has been self-medicating with ibuprofen as above, progressive abdominal girth and lower extremity swelling. Progressive exertional dyspnea, exercise intolerance, and orthopnea. The patient denies chest pain, no recent unilateral swelling of the legs, no recent unusual travel. He had a rhonchorous cough and denies fevers or chills. All other 14-point review of systems was unremarkable. PHYSICAL EXAMINATION: The patient is 5 feet 6 inches and weighs 303 pounds on the hospital scale (increased from [address] High's office visit ). His current BMI is 49. Blood pressure 110/70, pulse 69 and regular, respiratory rate is 23. He has been afebrile, oxygen saturation on VentiMask, 88% to 94%. General Appearance: Morbidly obese male lying at 40 degrees on a hospital bed with a VentiMask on, appears chronically ill. Psychologically, pleasant and cooperative. Neurologically, awake, alert and oriented to person, place and time. A bit of hard of hearing. Cranial nerves otherwise appear grossly intact. He follows commands to his physical ability. Speech is articulate and comprehension seems good. No gross motor or sensory deficits. HEENT: Mucous membranes moderately dry. Neck is thick and unable to evaluate JVP. No appreciable thyromegaly or lymphadenopathy and no audible bruits. Respirations diminished in the bases bilaterally, difficult exam, unable to fully roll over or sit forward. Coronary: Distant S1, S2, regular, without appreciable murmurs or rubs. Abdomen very rotund, drum-like, firm. I could not get a good liver exam. Lower extremities showed 3 to 4+ edema below the knee. No pitting edema above the knee. DIAGNOSTIC STUDIES/LABORATORY DATA: Chest x-ray on arrival, 03/24/17, showed cardiomegaly and probably interstitial edema. ECG on arrival, 03/24/17, shows sinus rhythm 72 beats a minute, QRS axis of - 75. Normal AV and IV conduction x4, R-wave progression across all the precordial leads.QS lead III and low volts consistent with his obesity. Nonspecific QRS widening. When this is compared with his baseline EKG of , the volts are lower in the precordial leads. Echocardiogram done today shows an old inferior- posterior myocardial infarction with a left ventricular ejection fraction of 30% to 35%, evidence of RV volume and pressure overload with the interventricular septum bowing into the left ventricle, marked right ventricular enlargement, and severe hypokinesis of the right ventricle. Severe right atrial enlargement, mild to moderate mitral insufficiency, moderate to severe tricuspid insufficiency, and severe pulmonary hypertension at 100 mmHg (compared with echo of 09/24/16, the LV function stable, but RV function has worsened and PA pressure previously 32 mmHg). A V/Q scan from 03/25/17 was low probability, normal exam without evidence of pulmonary embolism. Venous Doppler of the lower extremities with negative DVT. Pacemaker interrogation in the office done 12/31/16 [address] a [employer], ICD, single chamber set at VVI at 40 beats a minute. He is ventricularly paced less than 1% of the time, R wave sensed at 11.7 mV, RV lead impedance 340 ohms with a ventricular pacing threshold of 0.75 volts at 0.8 milliseconds. The HV lead impedance less than 10 ohms, stable; and he had episodes of nonsustained ventricular tachycardia for 6 to 8 seconds, 2 episodes. White count 10.7, hemoglobin 14, hematocrit 46, platelets 287, increased monos. INR 1.07. PTT 31.9. Sodium 139, potassium 4.5, chloride 104, bicarb 27, BUN 59 , creatinine 1.79. Glucose 143. Lactic acid on admission 1.2. ALT 9, AST 12. Troponin number 1 0.04, troponin number 2, 0.04., troponin number 3, 0.04, C- reactive protein 28.37, BNP 2353. TSH 2.93. Sed rate 15. Urinalysis: 2+ protein, 1+ glucose, negative nitrites, bacteria absent, negative esterase. IMPRESSION: In summary, Laurent Freire is a 56-year-old gentleman with a longstanding history of coronary artery disease and moderate to severe ischemic cardiomyopathy, now presenting with 3 months of progressive weight gain, shortness of breath, shoulder pain for which he has been ingesting Motrin on a regular basis with 60 lb weight gain, biventricular failier. Mr. Freire is found to have severe pulmonary hypertension, evidence of severe cor pulmonale, but we do not see evidence of significant change in his left ventricular systolic function. I think the patient's severe pulmonary hypertension and cor pulmonale are relatively acute in onset and severe and out of proportion to his left ventricular findings and renal function. Although this could be secondary to left heart failure from ibuprofen alone with secondary renal insufficiency, there are other potential etiologies in the differential that should be explored. This patient is at extremely high risk and is going to be extremely difficult to manage in terms of diuresis, improving PA pressures, volume status, and RV function. In the short term we should continue with diuresis, he with his creatinine he may well need chlorothiazide, metolazone and if Lasix does not work, Demadex or Bumex may work better and we will need to take care to watch his blood pressure and electrolytes carefully and renal function. Dobutamine and Milranone are options to try to ameliorate failier short term. I feel that the patient would benefit from unfractionated heparin as his right ventricle is not moving at all. In addition to his left ventricular dysfunction and additionally he is a high risk patient for DVT, although workup has been negative to date. I have also recommended transfer and evaluation to a center with a congestive heart failure/transplant team due to his severe pulmonary hypertension and RV failure, and have contacted [facility] and am waiting a call back. The patient and his daughter are amenable. If his right ventricle does not improve after unloading and improvement of the lungs if this is able to be done, he may be a candidate for an RVAD with his young age. In the interim gentle diuresis, oxygen replacement taking care to avoid hypercapnia, and optimization of his CPAP at night. I did send off a sed rate and rheumatoid factor because of the pain the patient had, but this may all be related to failure, and at this point, I am not seeing evidence of underlying autoimmune disorders. Overall this patient has a high morbidity and mortality risk. I feel he needs more than a [facility] hospital can provide in diagnostic and management. Over 60 minutes were spent on this patients care and coordination with > 50% spent face to face with the patient. [id number]/CPS #: [id number] MTDD
[2017-03-25] MEDS ORDERED: Milrinone* 100 ML IVPB SCH ×2 (16:00→18:53)
--- NOTE | 2017-03-25 16:08 | PN ---
Subjective Date of Service: 03/25/17 Interval History: HOSPITALIST PROGRESS NOTE Patient seen and examined at bedside. He states his dyspnea is a little better today. Denies CP or palpitations. HPI reviewed. Family History: Unchanged from Admission Social History: Unchanged from Admission Past Medical History: Unchanged from Admission Objective Active Medications: Acetaminophen (Tylenol Tab*) 650 mg PO Q6H PRN PRN Reason: PAIN Aspirin (Aspirin Low Dose Tab*) 81 mg PO DAILY [facility] Last Admin: 03/25/17 09:25 Dose: 81 mg Atenolol (Tenormin Tab*) 50 mg PO DAILY [facility] Last Admin: 03/25/17 09:25 Dose: 50 mg Atorvastatin Calcium (Lipitor*) 80 mg PO DAILY [facility] Last Admin: 03/25/17 09:25 Dose: 80 mg Dextrose (D50w Syringe 50 Ml*) 12.5 gm IV PUSH .FOR FS < 60 - SS PRN PRN Reason: FS < 60 Heparin Sodium (Porcine) (Heparin Vial(*)) 0 units IV .PER PROTOCOL [facility] PRN Reason: Protocol Last Admin: 03/25/17 12:09 Dose: 7,000 units Heparin Sodium/Dextrose (Heparin Drip 25,000 Units(*)) 25,000 units in 500 mls @ 0 mls/hr IVPB .PER RATE [facility]; Per Protocol PRN Reason: Protocol Last Admin: 03/25/17 12:18 Dose: 33 mls/hr Milrinone Lactate/Dextrose (Primacor*) 100 mls @ 10.328 mls/hr IVPB .PER RATE [facility] PRN Reason: 0.25 MCG/KG/MIN Insulin Human Lispro (Humalog*) 0 units SUBCUT AC [facility] PRN Reason: Protocol Last Admin: 03/25/17 13:17 Dose: 6 unit Morphine Sulfate (Morphine Inj (Syringe)*) 4 mg IV Q4H PRN PRN Reason: PAIN Last Admin: 03/25/17 04:01 Dose: 4 mg Ondansetron HCl (Zofran Inj*) 4 mg IV Q6H PRN PRN Reason: NAUSEA Vital Signs 03/25/17 03/25/17 03/25/17 14:15 14:31 14:47 Temperature 98.8 F 98.8 F 99.0 F Pulse Rate 63 62 59 Respiratory 21 21 25 Rate Blood Pressure 110/64 104/60 104/57 (mmHg) O2 Sat by Pulse 85 88 89 Oximetry 03/25/17 15:00 Temperature 99.1 F Pulse Rate 55 Respiratory 22 Rate Blood Pressure (mmHg) O2 Sat by Pulse 90 Oximetry Oxygen Devices in Use Now: - - Vapotherm 40 liters FiO2 90% Appearance: Morbid obese male, appears older than stated age, lying in bed in NAD. Eyes: No Scleral Icterus Ears/Nose/Mouth/Throat: Mucous Membranes Moist Neck: Trachea Midline Respiratory: Symmetrical Chest Expansion and Respiratory Effort, - - BS+ bilaterally, faint bibasilar rales Cardiovascular: RRR - Normal S1 and S2 Abdominal: NL Sounds; No Tenderness; No Distention - obese Extremities: - - Bilateral severe LE edema Neurological: Alert and Oriented x 3, NL Muscle Strength and Tone Lines/Tubes/Other Access: Clean, Dry and Intact Peripheral IV Nutrition: Taking PO's Result Diagrams: 03/25/17 11:45 03/25/17 11:45 Assess/Plan/Problems-Billing Assessment: Mr. Freire is a 56yo M with PMH of morbid obesity, type 2 DM, HTN, CAD s/p SD 1997 with stent to Cx, s/p ICD (placed in 1999), ischemic CMP with EF 30-35%, LUIS, who presented to ED with c/o 6 months of progressive dyspnea and weight gain (>60lbs), found to have cor pulmonale. - Patient Problems (1) Cor pulmonale Comment: - Patient prior echo from 10/03 showed PA pressure 32. Today's echo shows severe right ventricle pressure overload with PA pressure 100 and "guajardo shaped" ventricle with septum bowing into LV - findings compatible with severe cor pulmonale. - V/Q scan was negative for PE (unable to CTA due to DARCIE) and LE doppler negative for DVT. - D/w Cardiology - recommended anticoagulation with heparin as RV motility is greatly diminished. - Call placed to [facility] for transfer for Transplant/RVAD evaluation - team is analysing his case, no bed offer yet. - D/w Critical Care and Cardiology - we're all in agreement to start milrinone drip and try further diuresis with Furosemide. - Patient and daughter updated at bedside and aware of how grave his situation is. (2) Acute on chronic respiratory failure with hypoxemia Comment: - Patient now on Vapotherm 40 liters FiO2 90%. - Will check ABG to r/o hypercapnia. (3) Ischemic cardiomyopathy Comment: - Stable at this time. - Continue Aspirin, Atenolol, Atorvastatin. (4) Type 2 diabetes mellitus Comment: - Check Hb A1c. - Continue FS with Lispro SS coverage. (5) HTN (hypertension) Comment: - Controlled. - Continue Atenolol. (6) DARCIE (acute kidney injury) Comment: - Secondary to poor perfusion. - Hope to improve perfusion with Milrinone drip. - Urine output low despite IV Furosemide earlier today. - D/w Critical care - recommended Furosemide 80mg later today, after Milrinone drip running. May need Furosemide drip if no response. - Continue to monitor renal function. (7) LUIS (obstructive sleep apnea) Comment: - Continue CPAP. (8) DVT prophylaxis Comment: - Heparin drip. (9) Full code status Status and Disposition: Inpatient. Monitor in ICU. Overall prognosis is poor.
[2017-03-25] MEDS ORDERED: Insulin LISPRO* 1 UNITS UNIT SUBCUT SCH ×2 (16:30→22:00)
[2017-03-25 16:50] LABS: FIO2 100
[2017-03-25 16:54] LABS: PCO2 Arterial 64 mmHg (35-45)
[2017-03-25] MEDS ORDERED: Norepinephrine 16MCG/ML IVPRE* 4,000 MCG/250 ML BAG IV SCH ×3 (17:20→21:21)
[2017-03-25] MEDS ORDERED: Midazolam PREMIX BAG 1 MG/ML* 100 MG/100 ML BAG IV ONE (17:31)
[2017-03-25] MEDS ORDERED: fentaNYL PCA* 20 ML ONE (17:31)
[2017-03-25] MEDS ORDERED: Midazolam* 1 MG/ML 10 ML VIAL (10 MG) ONE (17:52)
[2017-03-25 18:19] LABS: FIO2 100; Resp Rate 18; Ventilator Volume 550
[2017-03-25 18:36] LABS: PCO2 Arterial 79 mmHg (35-45)
--- NOTE | 2017-03-25 18:54 | RAD ---
INDICATION: Status post intubation COMPARISON: Most recent comparison chest x-rays dated April 03, 2017 TECHNIQUE: Single AP portable view of the chest was obtained. FINDINGS: Image quality is compromised due to the relative inferiority of a portable chest x-ray. The endotracheal tube is measured approximately 4 cm above the sarita. A gastric tube is seen at least as far as the low midline mediastinum but the tip is not discretely visualized overlying the subdiaphragmatic abdomen. Again seen is mild cardiomegaly. Patchy densities are seen overlying the lungs. There is worsening density obscuring the left lung base. Worsening costophrenic angle blunting on the left could be due to enlarging pleural effusion. Visualized bones are normal for the patient's age. IMPRESSION: 1. Appropriately positioned endotracheal tube with the tip located 4 cm above the sarita. 2. The gastric tube is not seen below the lower midline mediastinum. Please correlate to physical examination and/or further imaging with dedicated abdominal x-ray. 3. Overall worsening aeration relative to the previous day chest x-ray.
[2017-03-25] MEDS ORDERED: fentaNYL PCA* 20 ML PCA SCH (19:00)
--- NOTE | 2017-03-25 19:38 | PN ---
Hospitalist Progress Note HOSPITALIST ADDENDUM At patient's bedside since 4:30pm. During the day, patient's condition continued to decline. He required Vapotherm 40 liters with progressive increase of his FiO2. Became more lethargic and ABG showed respiratory acidosis. Laboratory Tests 03/25/17 16:35 ABG pH 7.22 L ABG pCO2 64 H ABG pO2 49 L* ABG HCO3 22.2 ABG O2 Saturation 84.8 L Initially tried BiPAP, but he became more lethargic and after multiple conversations with Dr. Thompson, decision was made to intubate. Intubation was performed with no issues by Dr. Mathew, and although tube placement was confirmed, we are not able to bring his SO2 above 90 due to his poor perfusion. As per Dr. Thompson recommendation, patient was started on a Levophed drip (up to 20mcg now), Milrinone drip (up to 0.375mcg/kg). On Versed and Fentanyl for sedation. Despite all this measures, patient still has peripheral cyanosis and mottling of LE, with poor capillary refill. RT working with Dr. Thompson to optimized MV settings and try to improve oxygenation. [facility] has not accepted his case. As per transfer center Heart transplant tractor engine assembler feels patient is not a candidate for RVAD or transplant and the waiting list for their cardiac critical care unit is 4 days. Contacted [facility] but they do not have a heart transplant service. Contacted [facility] (transfer center [phone]) and discussed case with Dr. Maya (pager [phone]). She recommends CTA chest despite his DARCIE to definitively r/o PE. Will call her with the result. Despite receiving Metolazone and Furosemide earlier today, patient's urinary output this shift was only 75ml. Will start Furosemide drip at 20mg/h to try to decrease his fluid overload and decrease RV stretching, but keeping in mind we need to keep some fluid for forward flow. If he doesn't respond, other options would be Dobutamine or Epinephrine drip instead of Milrinone for his cardiogenic shock, but aware of their arrhythmogenic potential. Preliminary CTA chest report is negative for PE. Called Dr. Maya back with report - she discussed the case with PH team and patient is not accepted in transfer. She thinks he's too far gone for transplant at this point and recommended ECMO and Nitric oxide, but both are not available in our Facility. Called [facility] - patient was accepted in transfer by Dr. Busch. >150 minutes critical care time.
[2017-03-25] MEDS ORDERED: Iodixanol* (CONTRAST) 320 MG/ML 100 ML SDV IV ONE (19:50)
--- NOTE | 2017-03-25 19:55 | ED ---
Progress - Progress Note Progress Note: Called to ICU 3 for intubation. Versed 5mg x 2 used. [place] scope, 8 ET tube at 23 cm. Confirmation with Breath sounds B/L, positive CO2, and CXR confirmation. Course/Dx - Course Course Of Treatment: STABLE IN ED. ADMIT HOSPITALIST STABLE. - Diagnoses Provider Diagnoses: CHF (congestive heart failure), Hypoxia, Renal insufficiency
--- NOTE | 2017-03-25 20:34 | RAD ---
INDICATION: Dyspnea and pulmonary hypertension. COMPARISON: Similar CT of the chest dated April 06, 2015 TECHNIQUE: Axial source images were acquired following the administration of 96 mL of Visipaque [address] angiographic technique. Coronal and sagittal reconstructed images were constructed and reviewed. FINDINGS: Streak artifact and respiratory motion limits reliable evaluation beyond the lobar arteries. The endotracheal tube terminates at the trachea approximately 3.4 cm above the sarita. The gastric tube terminates at the lower esophagus partially in the patient's hiatal hernia. There there are no filling defects in the central lobular pulmonary arteries to indicate acute pulmonary embolic disease. There is consolidation of the bilateral lower lobes more severely affecting the left than the right. There are iteky-bz-ulcrndlw bilateral pleural effusions. There is cardiomegaly. There is no significant pericardial effusion. There is no mediastinal, hilar, or axillary lymphadenopathy. There is perihepatic fluid in peritoneal ascites scattered throughout the abdomen. Multilevel degenerative changes of the thoracic spine includes loss of intervertebral disc height. IMPRESSION: 1. No CT of evidence of centrilobular pulmonary embolism. 2. Compressive consolidation of the bilateral lower lobes and pleural effusion more severely affecting the left than the right. 3. Peritoneal ascites. Findings discussed with Dr. Leal over the telephone at 2020 hours on March 25, 2017.
[2017-03-25 21:36] LABS: PCO2 Arterial 52 mmHg (35-45)
--- NOTE | 2017-03-25 22:01 | RAD ---
INDICATION: Endotracheal tube confirmation COMPARISON: Chest x-ray dated March 25, 2017 TECHNIQUE: Single AP portable view of the chest was obtained. FINDINGS: Image quality is compromised due to the relative inferiority of a portable chest x-ray. Endotracheal tube tip is seen below the level the clavicles and approximately 5 cm above the sarita. As was seen on prior imaging there is a midline gastric tube that terminates at the midline lower mediastinum above the level the diaphragm. There is persistent cardiomegaly. Density obscures the left lung base. There are signs of vascular congestion including engorged pulmonary arteries and patchy densities overlying the lungs. Visualized bones are normal for the patient's age. IMPRESSION: 1. Endotracheal tube appears to be appropriately positioned proximally 5 cm above the sarita and below the level the clavicles. 2. The gastric tube is not seen below the level of diaphragm and appears to terminate at the low midline mediastinum. 3. Persistent density obscuring the left lung base with patchy densities elsewhere.
[2017-03-26 00:24] VITALS: BP 123/65
[2017-03-26 00:58] LABS: Rapid HIV INT CONT QC Line Present; Rapid HIV Kit Lot# H017003
--- NOTE | 2017-03-26 01:00 | TRS ---
TWO ADDENDUMS NOW INCLUDED ON THIS REPORT CC: Devin Pina DO; Dr. Krause; Dr. Werner Busch * DISCHARGE SUMMARY: DATE OF ADMISSION: 03/24/17 TENTATIVE DATE OF TRANSFER: 03/25/17 DISCHARGE DIAGNOSES: 1. Severe cor pulmonale. 2. Rtabn-wb-vwlnutc respiratory failure with hypoxemia. 3. Ischemic cardiomyopathy. 4. Acute kidney injury. 5. Type 2 diabetes. 6. Hypertension. 7. Obstructive sleep apnea. 8. Morbid obesity. 9. Coronary artery disease, status post stent to circumflex in 1997. 10. Status post ICD placement in 1999. MEDICATIONS AT THE TIME OF TRANSFER: 1. Acetaminophen 650 mg p.o. q.6 hours p.r.n. pain or fever. 2. Aspirin 81 mg p.o. daily. 3. Atenolol 50 mg p.o. daily. 4. Atorvastatin 80 mg p.o. daily. 5. Heparin drip per protocol. 6. Lispro sliding scale. 7. Milrinone drip at 0.25 mcg per kilogram per minute. 8. Morphine 5 mg IV q.5 hours p.r.n. pain. 9. Zofran 4 mg IV q.6 hours p.r.n. nausea or vomiting. HOSPITAL COURSE: Mr. Freire is a 56-year-old male with a past medical history as stated above, who presented to the emergency room on 03/24/17 with complaints of 6 months of progressive dyspnea and weight gain of more than 60 pounds. For more details about his presentation, I refer you to his history and physical. The patient was admitted under the impression of possible congestive heart failure exacerbation, but a transthoracic echocardiogram performed showed multiple regional wall motion abnormalities on the left ventricle with a posterior wall that is calcified and akinetic, an ejection fraction of 30% to 35 %, but the most significant finding was septal flattening of the interventricular septum consistent with right ventricular volume or pressure overload. Septum bowing into the LV with LV B-shaped instead of D-shaped. The right ventricle was in moderate to severely dilated. Right ventricular global systolic function is severely reduced. The atrium is moderate to severely dilated. There is moderate to severe TR and there is severe pulmonary hypertension with a PA pressure of 100. The patient was seen in consultation by Cardiology (Dr. Krause) and her impression is that the patient has a longstanding history of coronary artery disease, moderate to severe ischemic cardiomyopathy, now presented with months of progressive weight gain, shortness of breath, shoulder pain for which she has been ingesting Motrin on a regular basis. Mr. Freire is found to have severe pulmonary hypertension, evidence of severe cor pulmonale, but we do not see evidence of significant change in his left ventricular systolic function. Dr. Krause thinks that his severe pulmonary hypertension/cor pulmonale relatively acute in onset and severe especially considering that his prior echo done in September of 2016 showed that the RV function has worsened and at that time, his previous PA pressure was 32. In the short-term, she recommended to continue diuresis and she also recommended unfractionated heparin as she felt that his right ventricle was not moving at all. He is also a high-risk patient for DVT and PE, but his workup was negative with a V/Q scan that was negative for PE and a lower extremity Doppler that was negative for DVT. She did contact transplant service at [facility] and has presented the case and at this time, the service is still analyzing his information. He has not been formally offered a bed, so this dictation is done in advance in case he is transferred overnight. Dr. Krause thought that he may be a candidate for an RVAD considering his age. I discussed the case with the critical care provider (Dr. Thompson) and he was in agreement with a trial of a milrinone drip and further doses of furosemide. At the time of this dictation, the patient is on a Vapotherm at 40 L, FiO2 of 90 % with oxygen saturations in the low 90s, but he appears to be more comfortable. PHYSICAL EXAMINATION: Vital Signs: Temperature 99.0, heart rate is 61, respiratory rate is 22, oxygen saturation is 99% on Vapotherm 40 L FiO2 90%, blood pressure is 104/57. General: The patient is a morbidly obese male, lying in bed, in no acute distress. HEENT: Pupils are equal. Moist mucous membranes. CVS: Normal S1, S2. Regular rate and rhythm. Chest: Breath sounds present bilaterally with bibasilar crackles. Abdomen: Obese with wall edema, but soft. Bowel sounds are present. Extremities: There are severe bilateral lower extremity edema. He has dusky coloration of his lower extremity suggestive of . Neuro: He is alert, awake, and oriented x3. Able to move all 4 extremities. DIET: Heart-healthy, consistent carb diet. ACTIVITIES: As tolerated. DISPOSITION: Transfer to [facility]. STATUS WHILE IN THE HOSPITAL: Inpatient. Please keep in mind this is a summarized version of this patient's hospital stay and this is a transfer summary dictated in advance for tentative plan of transfer to [facility]. TIME SPENT: Approximately 60 minutes were spent to complete this transfer. ADDENDUM NO.1: ACCEPTING PHYSICIAN: Dr. Werner Busch. After the first transfer summary was dictated, the patient had further decline of his condition and required intubation. Despite intubation, he remained hypoxic and after changing his settings multiple times, we were finally able to get his saturation around 90%. He is on pressure control mode with a pressure of 24, PEEP of 5 with tidal volume of 550 to 600, and respiratory rate of 18. The patient's case was discussed with Dr. Angelica Maya at [facility] and after multiple back and forth and a CTA of the chest that was negative for PE, her conclusion was that the patient is too far gone for a transplant at this point and she recommended transfer to a nearby center for ECMO and nitric oxide infusion. I contacted Dr. Werner Busch at [place] and he accepted the patient in transfer. The patient's ET tube is at 24 at the lip and repeat chest x-ray shows that the tube is at 2 to 3 cm from the sarita. The patient was also started on Levophed, milrinone, and furosemide drips on top of his heparin drip and he is receiving Versed and fentanyl for sedation. ADDENDUM NO.2: Just updating the patient's last ABG, showed a pH of 7.28, improved from 7.14; a PCO2 of 52, improved from 79; of 50, improved from 45; oxygen saturation of 86%, improved from 77. [id number]/[facility] #: [id number] A1- [id number]/[facility]PS #: [id number] A2- [id number]/[facility] #: [id number] [facility]
--- NOTE | 2017-03-26 01:50 | TRS ---
CC: Dr. Devin Pina; Dr. Werner Busch TRANSFER SUMMARY: ACCEPTING PHYSICIAN: Dr. Werner Busch. ADDENDUM: After the first transfer summary was dictated, the patient had further decline of his condition and required intubation. Despite intubation, he remained hypoxic and after changing his settings multiple times, we were finally able to get his saturation around 90%. He is on pressure control mode with a pressure of 24, PEEP of 5 with tidal volume of 550 to 600, and respiratory rate of 18. The patient's case was discussed with Dr. Angelica Maya at [facility] and after multiple back and forth and a CTA of the chest that was negative for PE, her conclusion was that the patient is too far gone for a transplant at this point and she recommended transfer to a nearby center for ECMO and nitric oxide infusion. I contacted Dr. Werner Busch at [place] and he accepted the patient in transfer. The patient's ET tube is at 24 at the lip and repeat chest x-ray shows that the tube is at 2 to 3 cm from the sarita. The patient was also started on Levophed, milrinone, and furosemide drips on top of his heparin drip and he is receiving Versed and fentanyl for sedation. [id number]/[facility] #: [id number] [facility]
--- NOTE | 2017-03-26 01:58 | TRS ---
TRANSFER SUMMARY: ADDENDUM: Just updating the patient's last ABG, showed a pH of 7.28, improved from 7.14; a PCO2 of 52, improved from 79; of 50, improved from 45; oxygen saturation of 86%, improved from 77. [id number]/[facility] #: [id number] [facility]
[2017-03-26 15:21] LABS: Manual Entry Verification GRE0060
== END 2017-03-25 23:00 | disposition short-term general hospital (02) | DRG 314 ==
LOC: ED 14:10 → ICU 17:48
PROVIDERS: ADMIT Internal Medicine; ATTEND Internal Medicine
PROC: 5A09357 Assistance with Respiratory Ventilation, Less than 24 Consecutive Hours, Continuous Positive Airway Pressure (ICD-10-PCS; 2017-03-24)
PROC: 5A1935Z Respiratory Ventilation, Less than 24 Consecutive Hours (ICD-10-PCS; principal; 2017-03-25)
PROC: 0BH17EZ Insertion of Endotracheal Airway into Trachea, Via Natural or Artificial Opening (ICD-10-PCS; 2017-03-25)
PROC: 3E033XZ Introduction of Vasopressor into Peripheral Vein, Percutaneous Approach (ICD-10-PCS; 2017-03-25)
DX: I27.81 Cor pulmonale (chronic) (principal); I50.23 Acute on chronic systolic (congestive) heart failure; R57.0 Cardiogenic shock; J96.21 Acute and chronic respiratory failure with hypoxia; N17.9 Acute kidney failure, unspecified; Z68.42 Body mass index [BMI] 45.0-49.9, adult; I08.1 Rheumatic disorders of both mitral and tricuspid valves; E87.2 Acidosis; I25.10 Atherosclerotic heart disease of native coronary artery without angina pectoris; I11.0 Hypertensive heart disease with heart failure; E11.9 Type 2 diabetes mellitus without complications; E78.00 Pure hypercholesterolemia, unspecified; K21.9 Gastro-esophageal reflux disease without esophagitis; G57.00 Lesion of sciatic nerve, unspecified lower limb; F41.9 Anxiety disorder, unspecified; I27.2 Other secondary pulmonary hypertension; E66.01 Morbid (severe) obesity due to excess calories; G47.33 Obstructive sleep apnea (adult) (pediatric); I25.5 Ischemic cardiomyopathy; I25.2 Old myocardial infarction; Z95.5 Presence of coronary angioplasty implant and graft; Z95.810 Presence of automatic (implantable) cardiac defibrillator; Z82.49 Family history of ischemic heart disease and other diseases of the circulatory system; Z90.49 Acquired absence of other specified parts of digestive tract; Z72.89 Other problems related to lifestyle; Z95.1 Presence of aortocoronary bypass graft; Z87.891 Personal history of nicotine dependence; Z79.82 Long term (current) use of aspirin
CPT/HCPCS: 36415; 36600; 71010; 71275; 78582; 80048; 80053; 81003; 81015; 82550; 82553; 82803; 83605; 83690; 83735; 83880; 84443; 84484; 84520; 85025; 85610; 85652; 85730; 86140; 86431; 86703; 86706; 86803; 87340; 87641; 93005; 93306; 93970; 94002; 94660; A9270-GY; A9540; A9558; C1751; J1644; J1940; J2250; J2260; J2270; J3010; Q9967